=== PATIENT | male | born 1970 | race African-American/Black ===

== ENCOUNTER 2017-11-05 10:51 | Emergency (ER) | payer SELFPAY ==
[~2017-11-05] VITALS: Ht 177.8 cm; Wt 72.6 kg
[~2017-11-05 10:51] MED LIST: BACLOFEN10 MG ORAL; IBUPROFEN800 MG ORAL
[2017-11-05 11:00] VITALS: BP 160/79
[2017-11-05] MEDS ORDERED: Methocarbamol 750mg tab ORAL ONE (11:30)
[2017-11-05] MEDS ORDERED: Norco 5mg/325mg tab PO ONE (11:30)
[2017-11-05] MEDS ORDERED: Ketorolac 30mg Inj IM ONE (11:30)
[2017-11-05] MEDS ORDERED: Morphine Sulfate 2mg/ml Inj(IV/IM USE ONLY) IM ONE (13:00)
[2017-11-05] MEDS ORDERED: LIDODERM700 M1 TOPIC (13:37)
[2017-11-05] MEDS ORDERED: ROBAXIN-750750 MG PO (13:37)
[2017-11-05] MEDS ORDERED: NORCO 5-325 TA1 EACH ORAL (13:37)
[2017-11-05 13:48] VITALS: BP 160/79
--- NOTE | 2017-11-05 14:15 | Emergency Room Report ---
History of Present Illness General Chief Complaint: Lower Back Pain or Injury Source: Patient Present Illness HPI 47-year-old male presents ED complaining of back pain 3 days. States pain started shortly after lifting at the gym. Notes pain in his lower back on the left side. 10 out of 10, sharp, radiating to the buttock. Denies any bowel or bladder incontinence. Denies any leg or motor weakness. No other aggravating relieving factors. Denies any other associated symptoms Allergies: Coded Allergies: No Known Allergies (Unverified , 07/30/15) Patient History Past Medical History: none Past Surgical History: none Pertinent Family History: none Social History: Denies: smoking, alcohol use, drug use Immunizations: UTD Reviewed Nursing Documentation: PMH: Agreed; PSxH: Agreed Nursing Documentation-PMH Past Medical History: No History, Except For Hx Cardiac Problems: No - SCOLIOSIS Review of Systems All Other Systems: negative except mentioned in HPI Physical Exam Vital Signs Date Time Temp Pulse Resp B/P (MAP) Pulse Ox O2 Delivery O2 Flow Rate FiO2 11/05/17 10:53 98.2 77 16 160/79 96 Room Air 98.2 Sp02 EP Interpretation: reviewed, normal General Appearance: alert, GCS 15, non-toxic, mild distress Head: normocephalic, atraumatic Eyes: bilateral eye normal inspection, bilateral eye PERRL ENT: hearing grossly normal, normal pharynx, no angioedema, normal voice Neck: full range of motion, supple/symm/no masses Respiratory: chest non-tender, lungs clear, normal breath sounds, speaking full sentences Cardiovascular #1: regular rate, rhythm, no edema Cardiovascular #2: 2+ carotid (R), 2+ carotid (L), 2+ radial (R), 2+ radial (L) , 2+ dorsalis pedis (R), 2+ dorsalis pedis (L) Gastrointestinal: normal bowel sounds, non tender, soft, non-distended, no guarding, no rebound Rectal: deferred Genitourinary: normal inspection, no CVA tenderness, no vertebral tenderness Musculoskeletal: gait/station normal, normal range of motion, non-tender, tender - paraspinal lumbar tenderness Neurologic: alert, oriented x3, responsive, motor strength/tone normal, sensory intact, speech normal Psychiatric: judgement/insight normal, memory normal, mood/affect normal, no suicidal/homicidal ideation Reflexes: 3+ bicep (R), 3+ bicep (L), 3+ tricep (R), 3+ tricep (L), 3+ knee (R) , 3+ knee (L) Skin: normal color, no rash, warm/dry, well hydrated Lymphatic: no adenopathy Medical Decision Making Diagnostic Impression: Primary Impression: Back pain Qualified Codes: M54.42 - Lumbago with sciatica, left side ER Course Hospital Course 47-year-old male presents ED complaining of lower back pain Differential diagnoses include: pyelonephritis, kidney stone, muscle strain, Lspine fracture Clinical course Patient placed on stretcher. After initial history, physical exam reveals a male in mild distress. There is no vertebral body tenderness. There is paraspinal lumbar tenderness on the left radiating to the buttock. Sensations intact. No incontinence. Patient given Toradol, Lidoderm, Robaxin and Casar here. Patient noted some improvement. Patient given additional IM morphine with improvement noted. Discussed findings with patient. Pain is likely muscular versus sciatica. Patient could benefit from physical therapy and possible MRI as outpatient if symptoms do not resolve. Diagnosis - back pain Stable and discharged to home with prescription for Casar, lidoderm, robaxin. Followup with PMD. Return to ED if symptoms recur or worsen Last Vital Signs Date Time Temp Pulse Resp B/P (MAP) Pulse Ox O2 Delivery O2 Flow Rate FiO2 11/05/17 13:09 98.2 11/05/17 11:00 78 16 160/79 96 Room Air Status: improved Disposition: HOME, SELF-CARE Condition: Stable Scripts Lidocaine (Lidoderm) 1 Each Adh..patch 1 PATCH TOPIC DAILY, #7 PATCH 0 Refills Patch(es) may remain in place for up to 12 hours in any 24-hour period. Prov: Ovidio Young MD 11/05/17 Hydrocodone Bit/Acetaminophen 5-325* (NORCO 5-325*) 1 Each Tablet 1 TAB ORAL Q6H PRN for For Pain, #10 TAB 0 Refills Prov: Ovidio Young MD 11/05/17 Methocarbamol* (ROBAXIN-750*) 750 Mg Tablet 750 MG PO TID, #21 TAB 0 Refills Prov: Ovidio Young MD 11/05/17 Referrals: NOT CHOSEN IPA/MD,REFERRING (PCP) Patient Instructions: Low Back Sprain With [facility] Ovidio Young MD Nov 05, 2017 14:14
== END 2017-11-05 13:48 | disposition home or self-care (01) ==
LOC: EMR 11:27
DX: M54.42 Lumbago with sciatica, left side (principal)
CPT/HCPCS: 96372; 99283; J1885; J2270

== ENCOUNTER 2020-01-03 18:09 | Emergency (ER) | payer SELFPAY ==
[~2020-01-03] VITALS: Ht 182.9 cm; Wt 68.0 kg
[~2020-01-03 18:09] MED LIST changes: +LIDODERM700 M1 TOPIC; +NORCO 5-325 TA1 EACH ORAL; +ROBAXIN-750750 MG PO
[2020-01-03] MEDS ORDERED: Omnipaque-300 100ml vial INJ PRN (18:30)
--- NOTE | 2020-01-03 18:30 | NUR ---
ED Nurse Note: Pt ambulated to ED from home d/t RT upper and lower abdominal pain onset today x 1 hr ago accompanied by nausea and vomiting. Pt is AOx4, appears to be restless, currently nauseaus, cooperative to care, VSS, on RA, afebrile on triage. Placed on bed; will continue monitorning pt.
--- NOTE | 2020-01-03 18:30 | Emergency Room Report ---
History of Present Illness General Chief Complaint: Vomiting Source: Patient, Medical Record Present Illness HPI Disclaimer: Please note that this report is being documented using DRAGON technology. This can lead to erroneous entry secondary to incorrect interpretation by the dictating instrument. HPI: This 8-year-old male presents for evaluation abdominal pain and vomiting. Symptoms began this afternoon shortly after eating a burrito. He states he had sudden onset right lower quadrant pain that is throbbing causing multiple rounds of emesis. Denies diarrhea. Reports shaking chills but denies fevers. Denies chest pain, shortness of breath, cough. No known sick contacts. No prior abdominal surgery. No exacerbating or relieving factors. Pain has been constant since onset. PMH: Denied PSH: Denied Allergies: Denied Social Hx: Denied Allergies: Coded Allergies: No Known Allergies (Unverified , 07/30/15) COVID-19 Screening Contact w/high risk pt: No Experienced COVID-19 symptoms?: No COVID-19 Testing performed DECONTAMINATOR: No Nursing Documentation-PMH Hx Cardiac Problems: No - SCOLIOSIS Review of Systems All Other Systems: negative except mentioned in HPI Physical Exam Vital Signs Date Time Temp Pulse Resp B/P (MAP) Pulse Ox O2 Delivery O2 Flow Rate FiO2 01/03/20 18:20 97.5 89 18 151/89 (109) 99 Room Air General: Awake and alert, no acute distress HEENT: NC/AT. EOMI. Cardiovascular: RRR. S1 and S2 normal. No murmur appreciated Resp: Normal work of breathing. No cough, wheezing or crackles appreciated Abdomen: Abdomen is soft, nondistended. Tenderness palpation right lower quadrant but cannot fully assess for rebound, Rovsing's due to patient noncompliance. He is shaking. Mild guarding. Skin: Intact. No abrasions, laceration or rash over the exposed skin MSK: Normal tone and bulk. Moving all extremities. No obvious deformity. Neuro: Awake and alert. Mentating appropriately. Medical Decision Making Diagnostic Impression: Primary Impression: Kidney stone Additional Impression: Liver lesion ER Course 49-year-old male presents for evaluation abdominal pain and vomiting. Concern for gastritis, gastroenteritis, pancreatitis, appendicitis, bowel obstruction, food poisoning among others. Patient started on IV fluids, pain medication, antiemetics. White count within normal limits. Creatinine 1.1 BUN of 20. Lactate within normal limits. Urinalysis shows moderate bacteria 1+ leukocyte esterase negative nitrites. CT scan of the torso did not show acute appendicitis but did find a 6 mm stone with mild perinephric stranding. Mild hydronephrosis noted. Pain and vomiting are now well controlled. Patient is afebrile no other complaints. Discussed with urologist, Dr. Ordonez, who agrees that the patient is stable for outpatient follow-up and is a good chance of passing the stone on his own. Will start on tamsulosin and provide pain medication, antiemetics and ciprofloxacin for the bacteria in the patient's urine. Strict return precautions were discussed. First dose of ciprofloxacin given in the ED. patient structured to follow-up with PMD regarding the finding of meningioma. This will require routine follow-up. Will refer to outpatient follow-up. He understands and agrees with this treatment plan. Laboratory Tests Test 01/03/20 18:40 01/03/20 18:56 01/03/20 21:00 White Blood Count 5.7 K/UL (4.8-10.8) Red Blood Count 5.15 M/UL (4.70-6.10) Hemoglobin 11.8 G/DL (14.2-18.0) L Hematocrit 37.4 % (42.0-52.0) L Mean Corpuscular Volume 73 FL (80-99) L Mean Corpuscular Hemoglobin 22.9 PG (27.0-31.0) L Mean Corpuscular Hemoglobin Concent 31.5 G/DL (32.0-36.0) L Red Cell Distribution Width 14.7 % (11.6-14.8) Platelet Count 168 K/UL (150-450) Mean Platelet Volume 8.4 FL (6.5-10.1) Neutrophils (%) (Auto) 60.4 % (45.0-75.0) Lymphocytes (%) (Auto) 31.6 % (20.0-45.0) Monocytes (%) (Auto) 6.3 % (1.0-10.0) Eosinophils (%) (Auto) 0.5 % (0.0-3.0) Basophils (%) (Auto) 1.2 % (0.0-2.0) Prothrombin Time 11.8 SEC (9.30-11.50) H Prothrombin Time INR 1.1 (0.9-1.1) Activated Partial Thromboplast Time 25 SEC (23-33) Sodium Level 139 MMOL/L (136-145) Potassium Level 3.3 MMOL/L (3.5-5.1) L Chloride Level 103 MMOL/L (98-107) Carbon Dioxide Level 26 MMOL/L (21-32) Anion Gap 10 mmol/L (5-15) Blood Urea Nitrogen 20 mg/dL (7-18) H Creatinine 1.1 MG/DL (0.55-1.30) Estimated Glomerular Filtration Rate > 60 mL/min (>60) Glucose Level 194 MG/DL (74-106) H Calcium Level 8.5 MG/DL (8.5-10.1) Total Bilirubin 1.5 MG/DL (0.2-1.0) H Direct Bilirubin 0.2 MG/DL (0.0-0.3) Aspartate Amino Transferase (AST) 16 U/L (15-37) Alanine Aminotransferase (ALT) 12 U/L (12-78) Alkaline Phosphatase 51 U/L (46-116) Total Protein 6.6 G/DL (6.4-8.2) Albumin 4.3 G/DL (3.4-5.0) Globulin 2.3 g/dL Albumin/Globulin Ratio 1.9 (1.0-2.7) Lipase 108 U/L (73-393) Lactic Acid Level 1.70 mmol/L (0.4-2.0) Urine Color Brown Urine Appearance Cloudy Urine pH 5 (4.5-8.0) Urine Specific [place] 1.015 (1.005-1.035) Urine Protein 2+ (NEGATIVE) H Urine Glucose (UA) Negative (NEGATIVE) Urine Ketones 1+ (NEGATIVE) H Urine Blood 5+ (NEGATIVE) H Urine Nitrite Negative (NEGATIVE) Urine Bilirubin Negative (NEGATIVE) Urine Urobilinogen Normal MG/DL (0.0-1.0) Urine Leukocyte Esterase 1+ (NEGATIVE) H Urine RBC Tntc /HPF (0 - 0) H Urine WBC 2-4 /HPF (0 - 0) Urine Squamous Epithelial Cells None /LPF (NONE/OCC) Urine Bacteria Moderate /HPF (NONE) H CT/MRI/US Diagnostic Results CT/MRI/US Diagnostic Results : Impression IMPRESSION: 1. 6 mm distal right ureterolith with obstructive uropathy. 2. Right perinephric fat stranding, sequela of above, with underlying infectious process not entirely excluded. 3. 1.5 cm hypoenhancing lesion within the right hepatic lobe. Likely represents a hemangioma. Routine triphasic liver CT versus MRI can be considered for more definitive diagnosis. Radiologist: Tim Sparrow DO Electronically Signed: 01/03/20 20:51 Study ready at 20:46 and initial results transmitted at 20:51 Last Vital Signs Date Time Temp Pulse Resp B/P (MAP) Pulse Ox O2 Delivery O2 Flow Rate FiO2 01/03/20 18:20 97.5 89 18 151/89 (109) 99 Room Air Disposition: HOME, SELF-CARE Condition: Improved Scripts Hydrocodone Bit/Acetaminophen 7.5-325* (NORCO 7.5-325*) 1 Each Tablet 1 TAB ORAL Q6H PRN for For Pain, #12 TAB 0 Refills Prov: Andry Brown MD 01/03/20 Ciprofloxacin Hcl* (CIPROFLOXACIN HCL*) 500 Mg Tablet 500 MG ORAL Q12H for 10 Days, #20 TAB 0 Refills Prov: Andry Brown MD 01/03/20 Ondansetron Odt* (ZOFRAN ODT*) 4 Mg Tab.rapdis 4 MG BC EVERY 6 HOURS PRN for Nausea & Vomiting, #20 TAB 0 Refills Prov: Andry Brown MD 01/03/20 Tamsulosin HCl (Flomax) 0.4 Mg Cap.er.24h 0.4 MG ORAL DAILY for BPH for 7 Days, #7 CAP Prov: Andry Brown MD 01/03/20 Ibuprofen* (MOTRIN*) 600 Mg Tablet 600 MG ORAL Q6H PRN for For Pain, #30 TAB 0 Refills Prov: Andry Brown MD 01/03/20 Andry Brown MD Jan 03, 2020 18:30
--- NOTE | 2020-01-03 19:00 | NUR ---
ED Nurse Note: lactic collected, sent to lab
[2020-01-03 19:03] LABS: BASOPHILS % (AUTO) 1.2 % (0.0-2.0); EOSINOPHILS % (AUTO) 0.5 % (0.0-3.0); HEMATOCRIT 37.4 % (42.0-52.0); HEMOGLOBIN 11.8 G/DL (14.2-18.0); LYMPHOCYTES % (AUTO) 31.6 % (20.0-45.0); MEAN CORPUSCULAR VOLUME 73 FL (80-99); MONOCYTES % (AUTO) 6.3 % (1.0-10.0); NEUTROPHILS % (AUTO) 60.4 % (45.0-75.0); PLATELET COUNT 168 K/UL (150-450); RED BLOOD COUNT 5.15 M/UL (4.70-6.10); RED CELL DISTRIBUTION WIDTH 14.7 % (11.6-14.8); WHITE BLOOD COUNT 5.7 K/UL (4.8-10.8)
[2020-01-03 19:08] VITALS: BP 151/89
[2020-01-03 19:15] LABS: ANION GAP 10 mmol/L (5-15); BLOOD UREA NITROGEN 20 mg/dL (7-18); CALCIUM 8.5 MG/DL (8.5-10.1); CARBON DIOXIDE 26 MMOL/L (21-32); CHLORIDE 103 MMOL/L (98-107); CREATININE 1.1 MG/DL (0.55-1.30); POTASSIUM 3.3 MMOL/L (3.5-5.1); SODIUM 139 MMOL/L (136-145)
--- NOTE | 2020-01-03 19:15 | NUR ---
ED Nurse Note: report given to THEO Gallegos for continuity of care
--- NOTE | 2020-01-03 19:16 | NUR ---
ED Nurse Note: Pt in restroom, will continue to monitor.
[2020-01-03 19:18] LABS: INR 1.1 (0.9-1.1)
[2020-01-03 19:25] LABS: ALANINE AMINOTRANSFERASE 12 U/L (12-78); ALBUMIN 4.3 G/DL (3.4-5.0); ALBUMIN/GLOBULIN RATIO 1.9 (1.0-2.7); ALKALINE PHOSPHATASE 51 U/L (46-116); ASPARTATE AMINO TRANSFERASE 16 U/L (15-37); BILIRUBIN,TOTAL 1.5 MG/DL (0.2-1.0)
[2020-01-03 19:27] LABS: BILIRUBIN,DIRECT 0.2 MG/DL (0.0-0.3)
[2020-01-03] MEDS ORDERED: DiphenhydrAMINE 50mg/ml Inj IVP ONE (19:45)
[2020-01-03] MEDS ORDERED: DiphenhydrAMINE 50mg/ml Inj ONE (19:47)
[2020-01-03] MEDS ORDERED: Morphine Sulfate 4mg/ml Inj (IV USE ONLY) IVP ONE (20:00)
--- NOTE | 2020-01-03 20:12 | NUR ---
ED Nurse Note: Pt taken to CT in stable condition
[2020-01-03] MEDS ORDERED: Tamsulosin 0.4mg cap ORAL ONE (21:00)
[2020-01-03] MEDS ORDERED: Ketorolac 30mg Inj IV ONE (21:00)
--- NOTE | 2020-01-03 21:09 | NUR ---
ED Nurse Note: all medications administered, pt tolerated well no ss of distress noted. will continue to monitor.
[2020-01-03 21:10] VITALS: BP 143/84
--- NOTE | 2020-01-03 21:12 | NUR ---
ED Nurse Note: urine sent to lab
[2020-01-03 21:23] LABS: APPEARANCE,URINE CLOUDY; BILIRUBIN, URINE NEGATIVE (NEGATIVE); COLOR,URINE BROWN; GLUCOSE, URINE (UA) NEGATIVE (NEGATIVE); KETONES,URINE 1+ (NEGATIVE); LEUKOCYTE ESTERASE ,URINE 1+ (NEGATIVE); NITRITE,URINE NEGATIVE (NEGATIVE); PH,URINE 5 (4.5-8.0); PROTEIN,URINE 2+ (NEGATIVE); UROBILINOGEN,URINE NORMAL MG/DL (0.0-1.0)
[2020-01-03] MEDS ORDERED: FLOMAX0.4 MG ORAL ×2 (21:30)
[2020-01-03] MEDS ORDERED: IBUPROFEN600 M1 ORAL (21:30)
[2020-01-03] MEDS ORDERED: CIPROFLOXACIN500 M2 ORAL ×2 (21:44)
[2020-01-03] MEDS ORDERED: ONDANSETRON ODT4 MG BC (21:44)
[2020-01-03] MEDS ORDERED: NORCO 7.5-3251 EACH ORAL (21:45)
[2020-01-03] MEDS ORDERED: Ciprofloxacin 500mg tab ORAL ONE (22:00)
--- NOTE | 2020-01-03 22:00 | NUR ---
ED Nurse Note: ERMD at bedside
--- NOTE | 2020-01-03 22:02 | NUR ---
ED Nurse Note: All medications administered, pt tolerated well no ss of distress noted. will continue to monitor.
[2020-01-03 22:27] VITALS: BP 142/81
--- NOTE | 2020-01-03 22:27 | NUR ---
ER DISCHARGE NOTE: Patient is cleared to be discharged home per ERMD, pt is aox4, 99% on room air, with stable vital signs. pt was given dc and prescription instructions, pt was able to verbalize understanding, pt id band and iv site removed without complications. pt is able to ambulate with steady gait. pt took all belongings.
[2020-01-04] MEDS ORDERED: NORCO 7.5-3251 EACH ORAL (15:15)
--- NOTE | 2020-01-05 06:19 | Diagnostic Imaging Report ---
EXAM: CT Abdomen and Pelvis With Intravenous Contrast CLINICAL HISTORY: ABD PAIN TECHNIQUE: Axial computed tomography images of the abdomen and pelvis with intravenous contrast. CTDI is 5.6 mGy and DLP is 289.10 mGy-cm. One or more of the following dose reduction techniques were used: automated exposure control, adjustment of the mA and/or kV according to patient size, use of iterative reconstruction technique. COMPARISON: No relevant prior studies available. FINDINGS: Lung bases: Unremarkable. No mass. No consolidation. ABDOMEN: Liver: 1.5 cm hypoenhancing lesion within the right hepatic lobe. Gallbladder and bile ducts: Unremarkable. No calcified stones. No ductal dilation. Pancreas: Unremarkable. No mass. No ductal dilation. Spleen: Unremarkable. No splenomegaly. Adrenals: Unremarkable. No mass. Kidneys and ureters: 6 mm distal right ureterolith. There is mild proximal hydroureteronephrosis. There is mild delayed renal enhancement on the right with perinephric fat stranding. Punctate nonobstructive right interpolar nephrolith. Stomach and bowel: Unremarkable. No obstruction. No mucosal thickening. PELVIS: Appendix: Normal appendix. Bladder: Unremarkable. No mass. Reproductive: Unremarkable as visualized. ABDOMEN and PELVIS: Intraperitoneal space: Unremarkable. No free air. No significant fluid collection. Bones/joints: Significant apex right scoliosis of the thoracolumbar spine. No acute fracture. No dislocation. Soft tissues: Unremarkable. Vasculature: Unremarkable. No abdominal aortic aneurysm. Lymph nodes: Unremarkable. No enlarged lymph nodes. IMPRESSION: 1. 6 mm distal right ureterolith with obstructive uropathy. 2. Right perinephric fat stranding, sequela of above, with underlying infectious process not entirely excluded. 3. 1.5 cm hypoenhancing lesion within the right hepatic lobe. Likely represents a hemangioma. Routine triphasic liver CT versus MRI can be considered for more definitive diagnosis.
== END 2020-01-03 22:27 | disposition home or self-care (01) ==
LOC: EMR 18:50
DX: N13.2 Hydronephrosis with renal and ureteral calculous obstruction (principal); K76.9 Liver disease, unspecified; M41.9 Scoliosis, unspecified; Z91.14 Patient's other noncompliance with medication regimen
CPT/HCPCS: 36415; 74177; 80053; 81003; 82248; 83605; 83690; 85025; 85610; 85730; 86850; 86900; 86901; 87086; 96361; 96374; 96375; 96376; 99285; J1200; J1885; J2270; J2405; J7030; Q9965

== ENCOUNTER 2020-01-06 13:22 | Inpatient (IN) | payer MEDICAID ==
[~2020-01-06] VITALS: Ht 177.8 cm; Wt 76.8 kg
[~2020-01-06 13:22] MED LIST changes: +CIPROFLOXACIN500 M2 ORAL; +FLOMAX0.4 MG ORAL; +IBUPROFEN600 M1 ORAL; +NORCO 7.5-3251 EACH ORAL; +ONDANSETRON ODT4 MG BC
--- NOTE | 2020-01-06 13:32 | NUR ---
ED Nurse Note: Pt ambulated to ED from home d/t severe RT flank pain going on for less than a week. Per pt, he was seen and tx with the dx of kidney stones in the ER recently; was given prescriptions but pt stated no relief from pain. Pt is A&Ox4, appears to be restless, crying in pain, hooked to monitor BP: 181/77, breathing on spontaneous rhythm; afebrile on triage.
--- NOTE | 2020-01-06 13:36 | NUR ---
ED Nurse Note: Latest BP: 181/77; pt appears restless, crying in pain, ERMD at bedside.
[2020-01-06 13:38] VITALS: BP 177/96
--- NOTE | 2020-01-06 13:42 | Emergency Room Report ---
History of Present Illness General Chief Complaint: Pain Source: Patient Present Illness HPI 49-year-old -[place] male with no prior medical history who presents to the hospital for complaint of right flank pain. Of note he was seen in the ER 3 days ago and diagnosed with a 6 mm obstructing kidney stone. He was informed to follow-up with urology as an outpatient, however has been unable to obtain follow-up. He states that the pain is not controlled with the medications that he was discharged with. He has been compliant with his antibiotics. He reports decreased appetite, nausea, vomiting, decreased urination, chills, and fatigue. Denies chest pain, shortness of breath, diarrhea, hematuria back pain, rash or other symptoms The patient's symptoms were gradual onset, severity was moderate, duration since 3 days. Quality: Aching Past medical history: Kidney stone Past surgical history: Denies Smoking: Denies Alcohol use: Denies Drug use: Marijuana Review of systems: CONST: No fevers ++ chills, No night sweats PULMONARY: No productive cough, No shortness of breath CARDIAC: No chest pain, No palpitations GI: ++ vomiting, No diarrhea , No melena_or_BRBPR : No dysuria, No hematuria, No discharge NEURO: No new_focal_weakness_or_numbness, No confusion, No vision changes 14 point Review of Systems is otherwise negative except per HPI Physical Exam: GENERAL: Awake_alert_ nontoxic, no acute distress Spo2 100% on RA -normal EYES: Extraocular muscles are intact. Conjunctivae clear. Lids without swelling ENT: External nose and ear normal_in_appearance. Oropharynx clear. Head_atraumatic, Moist_oral_mucosa NECK: No JVD. No meningismus. No thyromegaly. Supple. Trachea midline RESP: Normal respiratory effort. Symmetric rise. No stridor. Clear_to_auscultation_No_rales_No_wheezes CARDIAC: Regular rate and regular rhytm. No_significant pedal edema. ABDOMEN: Soft. Nondistended. Nontender_No_rebound_or_guarding. Right CVA tenderness to palpation MSK: Normal muscle tone, without rigidity. Extremities without asymmetric deformity or swelling. SKIN: Warm and dry. No visible cyanosis or pallor NEUROLOGIC: Alert, oriented x3. Motor_and_sensation_grossly_intact. No truncal ataxia. Gait_normal Psych: Normal mood and affect, normal judgment and insight - COORDINATION OF CARE Case was discussed with: Patient , Patient's Physician Any labs and imaging that were ordered were interpreted as part of the medical decision making: Medical Decision Making/Plan: I reviewed patient's previous medical record. ER visit from 01/03/2020 showed 6 mm distal right ureterolith with obstructive uropathy and right perinephric stranding. Also found to have hypoenhancing 1.5 cm lesion within the right hepatic lobe. Urine culture was negative for infection Urology was consulted at that time and recommended discharge with expectant management. Differential diagnosis includes obstructive uropathy secondary to kidney stone versus pyelonephritis versus ureterolithiasis. At this time, patient has returned to the ER as they have failed outpatient expectant management. Patient was unable to follow-up with urology. He is not tolerating PO food/fluid and states that he is urinating less. Abdominal examination is notable for right CVA tenderness to palpation. He is otherwise afebrile with no focal deficits. ED intervention included flomax, toradol, morphine, zofran and fluids. Will admit to med surg for intractable pain 2/2 obstructive uropathy from renal stone. I spoke with Dr Cai who will admit the patient for further management. 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 Nursing Documentation-PMH Past Medical History: No History, Except For Hx Cardiac Problems: No - SCOLIOSIS Physical Exam Vital Signs Date Time Temp Pulse Resp B/P (MAP) Pulse Ox O2 Delivery O2 Flow Rate FiO2 01/06/20 13:27 98.4 74 20 177/96 (123) 97 Room Air Sp02 EP Interpretation: reviewed, normal Medical Decision Making Diagnostic Impression: Primary Impression: Hydronephrosis Additional Impressions: Obstructive uropathy Nephrolithiasis Liver lesion, right lobe Scoliosis BPH (benign prostatic hyperplasia) Diverticulosis EKG Diagnostic Results Troponin ordered: No CT/MRI/US Diagnostic Results CT/MRI/US Diagnostic Results : Impression CT Abdomen Pelvis WO Contrast Indication: Right flank pain Findings: There is mild right hydronephrosis and mild to moderate right hydroureter. There is a 5 mm calculus projected at the level of the distal right ureter this is located more distally than was demonstrated on the previous study, currently only about 1 cm from the ureterovesical junction, previously approximately 3 to 4 cm proximal to. There is very slight perinephric fat stranding. Hydronephrosis and fat stranding is unchanged from the prior study. Again demonstrated is a punctate nonobstructive interpolar region calculus on the right. No left renal or ureteral calculi demonstrated. No left hydronephrosis or hydroureter. Lack of IV contrast limits assessment of the renal parenchyma. No gross renal parenchymal mass or cyst demonstrated. Lack of IV contrast limits assessment of the other solid organs. The liver demonstrates a 14 mm slightly hypoattenuating lesion within segment 5 which demonstrates nonspecific soft tissue attenuation. There is a subcentimeter low-attenuation lesion in segment 2 which is too small to characterize the gallbladder, bile ducts, pancreas, spleen, adrenals are unremarkable. No retroperitoneal or mesenteric mass or adenopathy. The prostate is prominent. No pelvic mass or adenopathy. The appendix is normal. There are a few colonic diverticula. No small bowel distention. No free or loculated intraperitoneal gas or fluid. No small bowel distention. The included lung bases are clear. The bones demonstrate degenerative changes as well as thoracolumbar scoliotic deformity. Impression: 5 mm distal right ureteral calculus again demonstrated. This has advanced distally as compared to the previous study, now just short of the ureterovesical junction Punctate nonobstructive interpolar region calculus on the right 14 mm hypoattenuating lesion in segment 5 of the liver again demonstrated. Attenuation is nonspecific, and differential possibilities include neoplasm, hemangioma, complicated cysts. \ Scoliosis Colonic diverticulosis Prostatomegaly Incidental finding subcentimeter low-attenuation left lobe liver lesion, too small to characterize, most likely benign simple cyst Reevaluation Time: 13:49 Last Vital Signs Date Time Temp Pulse Resp B/P (MAP) Pulse Ox O2 Delivery O2 Flow Rate FiO2 01/06/20 13:38 98.4 20 177/96 97 Room Air 01/06/20 13:27 74 Status: improved Disposition: ADMITTED INPATIENT Admit Decision Time: 13:49 Condition: Stable Physician Consult: Dr Ordonez -- Urology Julia Batista D.O. Jan 06, 2020 13:42
[2020-01-06] MEDS ORDERED: Morphine Sulfate 4mg/ml Inj (IV USE ONLY) IVP ONE (13:45)
[2020-01-06] MEDS ORDERED: Tamsulosin 0.4mg cap ORAL ONE (13:45)
[2020-01-06] MEDS ORDERED: Ketorolac 30mg Inj IV ONE (13:45)
--- NOTE | 2020-01-06 14:01 | NUR ---
ED Nurse Note: pt taken to CT.
[2020-01-06 14:04] LABS: HEMATOCRIT 36.5 % (42.0-52.0); HEMOGLOBIN 11.6 G/DL (14.2-18.0); MEAN CORPUSCULAR VOLUME 70 FL (80-99); PLATELET COUNT 184 K/UL (150-450); RED BLOOD COUNT 5.21 M/UL (4.70-6.10); RED CELL DISTRIBUTION WIDTH 12.9 % (11.6-14.8); WHITE BLOOD COUNT 5.7 K/UL (4.8-10.8)
[2020-01-06 14:07] LABS: APPEARANCE,URINE CLEAR; COLOR,URINE PALE YELLOW; KETONES,URINE 2+ (NEGATIVE); PROTEIN,URINE NEGATIVE (NEGATIVE)
[2020-01-06 14:08] LABS: BILIRUBIN, URINE NEGATIVE (NEGATIVE); GLUCOSE, URINE (UA) NEGATIVE (NEGATIVE); LEUKOCYTE ESTERASE ,URINE 1+ (NEGATIVE); NITRITE,URINE NEGATIVE (NEGATIVE); UROBILINOGEN,URINE NORMAL MG/DL (0.0-1.0)
--- NOTE | 2020-01-06 14:22 | NUR ---
ED Nurse Note: pt returned from CT on stable condition.
[2020-01-06 14:25] LABS: ALANINE AMINOTRANSFERASE 14 U/L (12-78); ALBUMIN 4.2 G/DL (3.4-5.0); ALBUMIN/GLOBULIN RATIO 1.8 (1.0-2.7); ALKALINE PHOSPHATASE 54 U/L (46-116); ASPARTATE AMINO TRANSFERASE 24 U/L (15-37); BILIRUBIN,TOTAL 2.5 MG/DL (0.2-1.0); BLOOD UREA NITROGEN 7 mg/dL (7-18); CALCIUM 8.8 MG/DL (8.5-10.1); CARBON DIOXIDE 25 MMOL/L (21-32); CHLORIDE 101 MMOL/L (98-107); CREATININE 1.1 MG/DL (0.55-1.30); POTASSIUM 3.7 MMOL/L (3.5-5.1); SODIUM 135 MMOL/L (136-145)
[2020-01-06 14:27] LABS: INR 1.1 (0.9-1.1)
[2020-01-06 14:42] LABS: BILIRUBIN,DIRECT 0.3 MG/DL (0.0-0.3)
--- NOTE | 2020-01-06 15:18 | Diagnostic Imaging Report ---
Indication: Right flank pain Technique: Spiral acquisitions obtained through the abdomen and pelvis. No oral or IV contrast utilized, per urinary stone protocol. Multiplanar reconstructions were generated. Total dose length product 279 mGycm. CTDIvol(s) 5 mGy. Dose reduction achieved using automated exposure control Comparison: 01/03/2020 Findings: There is mild right hydronephrosis and mild to moderate right hydroureter. There is a 5 mm calculus projected at the level of the distal right ureter this is located more distally than was demonstrated on the previous study, currently only about 1 cm from the ureterovesical junction, previously approximately 3 to 4 cm proximal to. There is very slight perinephric fat stranding. Hydronephrosis and fat stranding is unchanged from the prior study. Again demonstrated is a punctate nonobstructive interpolar region calculus on the right. No left renal or ureteral calculi demonstrated. No left hydronephrosis or hydroureter. Lack of IV contrast limits assessment of the renal parenchyma. No gross renal parenchymal mass or cyst demonstrated. Lack of IV contrast limits assessment of the other solid organs. The liver demonstrates a 14 mm slightly hypoattenuating lesion within segment 5 which demonstrates nonspecific soft tissue attenuation. There is a subcentimeter low-attenuation lesion in segment 2 which is too small to characterize the gallbladder, bile ducts, pancreas, spleen, adrenals are unremarkable. No retroperitoneal or mesenteric mass or adenopathy. The prostate is prominent. No pelvic mass or adenopathy. The appendix is normal. There are a few colonic diverticula. No small bowel distention. No free or loculated intraperitoneal gas or fluid. No small bowel distention. The included lung bases are clear. The bones demonstrate degenerative changes as well as thoracolumbar scoliotic deformity. Impression: 5 mm distal right ureteral calculus again demonstrated. This has advanced distally as compared to the previous study, now just short of the ureterovesical junction Punctate nonobstructive interpolar region calculus on the right 14 mm hypoattenuating lesion in segment 5 of the liver again demonstrated. Attenuation is nonspecific, and differential possibilities include neoplasm, hemangioma, complicated cysts. Further evaluation with sonography or multiphasic contrast CT is recommended Scoliosis Colonic diverticulosis Prostatomegaly Incidental finding subcentimeter low-attenuation left lobe liver lesion, too small to characterize, most likely benign simple cyst The CT scanner at [facility] is accredited by the [employer] and the scans are performed using protocols designed to limit radiation exposure to as low as reasonably achievable to attain images of sufficient resolution adequate for diagnostic evaluation.
[2020-01-06 15:22] VITALS: BP 139/67
--- NOTE | 2020-01-06 15:55 | NUR ---
ED Nurse Note: report was given to liliana infante in med surg unit.
--- NOTE | 2020-01-06 16:00 | NUR ---
ED Nurse Note: pt was transferred to ms unit under the care of dr mcdaniel. Pt was transferred on stable condition; all belongings was sent with pt
--- NOTE | 2020-01-06 16:09 | NUR ---
NURSE NOTES: Received patient from ER,patient awake and alert and oriented,respirations unlabored. Patient state slight pain to the right side to the back and bladder.Will notify DR of patient room number.
[2020-01-06 16:37] VITALS: BP 146/79
[2020-01-06] MEDS ORDERED: Morphine Sulfate 2mg/ml Inj(IV/IM USE ONLY) IVP PRN (17:45)
[2020-01-06] MEDS: Ketorolac 30mg Inj IV SCH ×2 (19:20→23:52)
--- NOTE | 2020-01-06 19:30 | NUR ---
NURSE NOTES: Received report from Savana VENEGAS. Pt. is in bed, awake, alert and oriented. Breathing even and unlaobred.States his pain level is improving because he just had his pain meds. Bed is in it's lowest position, alarm on and locked. Will continue with plan of care.
--- NOTE | 2020-01-06 19:30 | Consultation ---
DATE OF CONSULTATION: 01/06/2020 UROLOGY CONSULTATION CONSULTING PHYSICIAN: Herb Ordonez MD. ATTENDING/REFERRING PHYSICIAN: Jhonny Cai MD. CHIEF COMPLAINT/HISTORY OF PRESENT ILLNESS: I was asked by Dr. Cai to evaluate this 49-year-old gentleman regarding history of a right distal ureteral stone with hydronephrosis and colic secondary to the same. Briefly, the patient has presented to the hospital for the second time in three days with right abdominal flank pain. This first developed the other day with nausea and vomiting. Workup here revealed a distal right ureteral stone. The patient's pain was controlled and he was initially sent out, but he now returns with ongoing pain. A follow-up CT scan revealed migration of the stone to 1 cm above the UVJ. But given his level of discomfort, he was admitted and I was asked to evaluate the patient. PAST MEDICAL HISTORY: Otherwise unremarkable. PAST SURGICAL HISTORY: None. MEDICATIONS: Please see the chart for current medications and administration details. Briefly, the patient is on morphine for pain control. ALLERGIES: No known drug allergies. SOCIAL HISTORY: Unremarkable for tobacco or alcohol use. The patient smokes marijuana on occasion. FAMILY HISTORY: Noncontributory. REVIEW OF SYSTEMS: A 14-system review of systems is unremarkable outside what is described above. PHYSICAL EXAMINATION: GENERAL: The patient is a middle-aged gentleman, awake, alert, and oriented x4. Very pleasant. No obvious distress. HEENT: NC/AT. EOMI. Oropharynx clear. NECK: Supple. CHEST: Within normal limits. ABDOMEN: Soft, nontender, and nondistended. EXTREMITIES: Warm and well perfused. No cyanosis, clubbing, or edema. BACK: No CVA tenderness to percussion at this time. NEUROLOGIC: Grossly nonfocal. LABORATORY DATA: White blood cell count 5.7, hematocrit 36.5, platelets 184,000. PT is 11.7. INR and PTT within normal limits. Sodium 135, potassium 3.7, chloride 101, bicarb 25, BUN 7, creatinine 1.1. Glucose 129. Calcium 8.8. LFTs notable for total bilirubin of 2.5, otherwise unremarkable. Urinalysis, specific gravity 1.010, pH 6.0. Dip test is notable for 2+ ketones, 4+ occult blood, and 1+ leukocyte esterase. Microanalysis with 20 to 30 red blood cells per high-power field. DIAGNOSTIC IMAGING: CT scan of the abdomen and pelvis done today reveals a 5 mm distal right ureteral calculus, which has advanced distally compared to the previous study. It is now approximately 1 cm from the UV junction. It was approximately 4 cm proximal to it before. There is very slight perinephric stranding secondary to same. There is a punctate nonobstructing 2 mm stone in the bottom of the right kidney. Other findings as noted. ASSESSMENT AND PLAN: In summary, the patient is a 49-year-old with a history of a 5 mm right distal ureteral stone with hydronephrosis and colic secondary to same. Physical exam is unremarkable. Laboratory data is notable for microhematuria in the setting of same. Diagnostic imaging with CT scan reveals the findings described above. I discussed these findings at the patient's bedside. I will place him on increased IV fluids and we will strain all his urine. Additionally, I will place him on Toradol 30 mg IV every 6 hours [id number] for better pain control. We will see how the patient is doing tomorrow. If he is not improved, we will consider ureteroscopy with laser lithotripsy and double-J stent placement for the same. The risks, benefits, and alternatives of the same were discussed with the patient and informed consent was obtained. He will be kept NPO past midnight in case of the same. If the patient manages to pass the stone in the interim, we will cancel surgery. Thank you for allowing me to participate in the care of this nice gentleman. Please do not hesitate to contact me for any questions that you may further have regarding his care. I will see him with you as needed. Herb Ordonez M.D. DR: SOM JOB#: [id number] CC:
--- NOTE | 2020-01-06 19:36 | NUR ---
NURSE HAND-OFF: ALRN Important Events on Shift:[consent signed for procedure on 01/07/20] Patient Status: [] Diet: Regular,NPO after Midnight[] Pending Orders: [] Pending Results/Labs:[] Pending MD notification:[] Latest Vital Signs: Temperature 98.1 , Pulse 59 , B/P 146 /79 , Respiratory Rate 18 , O2 SAT 100 , Room Air, O2 Flow Rate . Vital Sign Comment: [] Latest Thayer Fall Score: 35 Fall Risk: Medium Risk Safety Measures: Call light Within Reach, Bed Alarm , Side Rails Side Rails x2, Bed position Low and Locked. Fall Precautions: Report given to [].
[2020-01-06 20:00] VITALS: BP 137/94
[2020-01-06] MEDS: cefTRIAXone 1 GM in D5W 55 ML IVPB SCH (21:14)
[2020-01-07] VITALS (12 sets, daily range): BP systolic 132–150; BP diastolic 50–92
--- NOTE | 2020-01-07 02:00 | History and Physical Report ---
DATE OF ADMISSION: 01/06/2020 REASON FOR ADMISSION: Ureteral colic. HISTORY OF PRESENT ILLNESS: This is a 49-year-old male. He has a known history of a right distal ureteral stone with hydronephrosis. He was here 3 days ago and treated with hydration with outpatient follow up. Over the subsequent days, the stone has migrated more distally to the UV junction, but continued pain with inadequate control as an outpatient, has prompted hospitalization. PAST MEDICAL HISTORY: Otherwise unremarkable. MEDICATIONS: None. ALLERGIES: None. SOCIAL HISTORY: Occasional marijuana. FAMILY HISTORY: Noncontributory. REVIEW OF SYSTEMS: Otherwise unremarkable. PHYSICAL EXAMINATION: GENERAL: Appears well. No distress. VITAL SIGNS: Blood pressure 132/79, heart rate 89, respirations 18. Afebrile. HEENT: Conjunctivae pink. Oropharynx clear. NECK: Supple. Jugular venous pressure normal. LUNGS: Clear. CARDIAC: Regular. ABDOMEN: Soft. No guarding or rebound. There is no CVA tenderness. EXTREMITIES: Without edema. NEUROLOGIC: Nonfocal. LABORATORY AND DIAGNOSTIC DATA: White count 5.7, hematocrit 36.5. BUN 7, creatinine 1.1, bicarb 25, sodium 135, and potassium 3.7. Urinalysis, 20 to 30 red cells. CAT scan revealed 5 mm distal right ureteral calculus, approximately 1 cm from the UV junction. Previously it was 4 cm from that site. There is also a small stone in the right kidney that is nonobstructing. IMPRESSION: Ureteral stone and associated ureteral colic with hydronephrosis and acute pain, unresponsive to oral therapy. PLAN: IV pain control. IV fluid hydration. Urologic consultation. Presently no indication for antimicrobial therapy, but we will follow closely. Check uric acid levels and lipid panel. Jhonny Cai M.D. DR: IBIS JOB#: [id number] CC:
[2020-01-07] MEDS: NS w/KCl 20mEq 1000ml 1,000 ML IV SCH ×2 (02:24→10:34)
--- NOTE | 2020-01-07 04:34 | NUR ---
NURSE NOTES: IV atb of Ceftriaxone given without a/r noted. Able tovoid but with pain, noted with clear yellow urine and strainer was provided. Checked urine for any kidney stones but none was noted. Discussed plan for surgery in AM and verbalized understanding. NPO started at midnight. Meds given for flank pain, verbalized relief.Able to ambulate with steady gait. Bed is in it's lowest position, with alarm on and locked. Frequently monitored.
[2020-01-07] MEDS: Ketorolac 30mg Inj IV SCH ×3 (06:11→18:31)
[2020-01-07 06:21] LABS: BASOPHILS % (AUTO) 1.3 % (0.0-2.0); EOSINOPHILS % (AUTO) 0.2 % (0.0-3.0); HEMATOCRIT 34.9 % (42.0-52.0); LYMPHOCYTES % (AUTO) 19.8 % (20.0-45.0); MEAN CORPUSCULAR VOLUME 71 FL (80-99); MONOCYTES % (AUTO) 10.7 % (1.0-10.0); PLATELET COUNT 160 K/UL (150-450); RED BLOOD COUNT 4.95 M/UL (4.70-6.10); RED CELL DISTRIBUTION WIDTH 13.1 % (11.6-14.8); WHITE BLOOD COUNT 5.4 K/UL (4.8-10.8)
[2020-01-07] MEDS ORDERED: Iothalamate Meglumine 60% 50ML INJ ONE (06:33)
[2020-01-07 06:42] LABS: ALANINE AMINOTRANSFERASE 16 U/L (12-78); ALBUMIN 3.5 G/DL (3.4-5.0); ALBUMIN/GLOBULIN RATIO 1.3 (1.0-2.7); ALKALINE PHOSPHATASE 49 U/L (46-116); ANION GAP 8 mmol/L (5-15); ASPARTATE AMINO TRANSFERASE 20 U/L (15-37); BILIRUBIN,TOTAL 2.4 MG/DL (0.2-1.0); BLOOD UREA NITROGEN 8 mg/dL (7-18); CARBON DIOXIDE 26 MMOL/L (21-32); CHLORIDE 106 MMOL/L (98-107); CHOLESTEROL 123 MG/DL (< 200); CREATININE 1.3 MG/DL (0.55-1.30); HDL CHOLESTEROL 48 MG/DL (40-60); SODIUM 140 MMOL/L (136-145); TRIGLYCERIDES 37 MG/DL (30-150)
[2020-01-07 06:45] LABS: BILIRUBIN,DIRECT 0.3 MG/DL (0.0-0.3)
[2020-01-07] MEDS ORDERED: fentaNYL 100 mcg/2 mL IV PRN (06:45)
[2020-01-07] MEDS ORDERED: Hydromorphone 0.5mg/0.5ml inj IVP PRN (06:45)
[2020-01-07] MEDS ORDERED: Metoclopramide 10mg/2ml Inj IVP PRN (06:45)
--- NOTE | 2020-01-07 06:45 | NUR ---
Picked up for surgery. Report given.
--- NOTE | 2020-01-07 06:50 | Pre-Procedure Note/Attestation ---
Pre-Procedure Note/Attestation Complete Prior to Procedure Planned Procedure: right Procedure Narrative: Right ureteroscopy, laser lithotripsy, possible JJ stent placement, cystoscopy and fluoroscopy Indications for Procedure Pre-Operative Diagnosis: Right ureteral stone/ hydro/ colic Attestation I attest that I discussed the nature of the procedure; its benefits; risks and complications; and alternatives (and the risks and benefits of such alternatives), prior to the procedure, with the patient (or the patient's legal rental representative). I attest that, if there was a reasonable possibility of needing a blood transfusion, the patient (or the patient's legal rental representative) was given the [place] [employer] standardized written summary, pursuant to the Manuel Shahzad Blood Safety Act ([place] Health and Safety Code # 1645, as amended). I attest that I re-evaluated the patient just prior to the surgery and that there has been no change in the patient's H&P, except as documented below: Herb Ordonez M.D. Jan 07, 2020 06:50
[2020-01-07] MEDS ORDERED: Midazolam 2mg/2ml Inj ONE (06:53)
[2020-01-07] MEDS ORDERED: LR 1000ml ONE (07:00)
[2020-01-07] MEDS ORDERED: Sterile Water Irrig 1000ml IRRIG ONE (07:00)
[2020-01-07] MEDS ORDERED: Lidocaine 1% MPF 10mg/ml 5ml ONE (07:12)
[2020-01-07] MEDS ORDERED: fentaNYL 100 mcg/2 mL IV ONE (07:23)
--- NOTE | 2020-01-07 07:43 | NUR ---
NURSE HAND-OFF: Important Events on Shift:npo, for surgery Patient Status: Diet: Pending Orders: Pending Results/Labs: Pending MD notification: Latest Vital Signs: Temperature 97.5 , Pulse 73 , B/P 135 /76 , Respiratory Rate 17 , O2 SAT 95 , Room Air, O2 Flow Rate . Vital Sign Comment: Latest Thayer Fall Score: 35 Fall Risk: Medium Risk Safety Measures: Call light Within Reach, Bed Alarm Zone 2, Side Rails Side Rails x2, Bed position Low and Locked. Fall Precautions: Report given to Savana VENEGAS.
--- NOTE | 2020-01-07 07:49 | NUR ---
NURSE NOTES: Received report Patient off floor for procedure this AM.
--- NOTE | 2020-01-07 07:50 | Immediate Post-Op Evaluation ---
Immediate Post-Op Evalulation Immediate Post-Op Evalulation Procedure: uteroscopy; j stent Date of Evaluation: Jan 07, 2020 Time of Evaluation: 07:45 IV Fluids: 1000 Blood Products: 0 Estimated Blood Loss: 0 Blood Pressure Systolic: 140 Blood Pressure Diastolic: 50 Pulse Rate: 65 Respiratory Rate: 14 O2 Sat by Pulse Oximetry: 99 Temperature (Fahrenheit): 98.7 Nausea: No Vomiting: No Complications none Patient Status: awake, reacts, patent Hydration Status: adequate Drug: none Pamela Grayson CRNA Jan 07, 2020 07:50
--- NOTE | 2020-01-07 07:53 | Anethesia Preoperative Eval ---
Anesthesia Pre-op PMH/ROS General Date of Evaluation: Jan 07, 2020 Time of Evaluation: 07:00 Anesthesiologist: alf ASA Score: ASA 2 Mallampati Score Class I : Soft palate, uvula, fauces, pillars visible Class II: Soft palate, uvula, fauces visible Class III: Soft palate, base of uvula visible Class IV: Only hard plate visible Mallampati Classification: Class II Surgeon: elida Diagnosis: kidney stones Surgical Procedure: uterscopy Anesthesia History: none Family History: no anesthesia problems Allergies: Coded Allergies: No Known Allergies (Unverified , 07/30/15) Medications: see eMAR Patient NPO?: Yes NPO Date: Jan 07, 2020 NPO Time: 00:01 Past Medical History Cardiovascular: Denies: HTN, CAD, [place], valve dz, arrhythmia, other Pulmonary: Denies: asthma, COPD, CRYSTAL, other Gastrointestinal/Genitourinary: Denies: GERD, CRI, ESRD, other Neurologic/Psychiatric: Denies: dementia, CVA, depression/anxiety, TIA, other Endocrine: Denies: DM, hypothyroidism, steroids, other HEENT: Denies: cataract (L), cataract (R), glaucoma, ATKA (L), ATKA (R), other Hematology/Immune: Denies: anemia, DVT, bleeding disorder, other Musculoskeletal/Integumentary: Denies: OA, RA, DJD, DDD, edema, other Other: other - kidney stones; PSxH Narrative: none Anesthesia Pre-op Phys. Exam Physician Exam Last Vital Signs Date Time Temp Pulse Resp B/P (MAP) Pulse Ox O2 Delivery O2 Flow Rate FiO2 01/07/20 04:00 97.5 73 17 135/76 (95) 95 01/06/20 21:00 Room Air Constitutional: NAD Neurologic: CN 2-12 intact Cardiovascular: RRR Respiratory: CTA Gastrointestinal: S/NT/ND Airway Exam Mallampati Classification 2 Mallampati Score: Class II MO: full Neck: flexible ROM: full Dentures: no upper, no lower Anesthesia Pre-op A/P Labs Hematology Test 01/06/20 13:42 01/07/20 05:03 White Blood Count 5.7 K/UL (4.8-10.8) 5.4 K/UL (4.8-10.8) Red Blood Count 5.21 M/UL (4.70-6.10) 4.95 M/UL (4.70-6.10) Hemoglobin 11.6 G/DL (14.2-18.0) L 11.0 G/DL (14.2-18.0) L Hematocrit 36.5 % (42.0-52.0) L 34.9 % (42.0-52.0) L Mean Corpuscular Volume 70 FL (80-99) L 71 FL (80-99) L Mean Corpuscular Hemoglobin 22.3 PG (27.0-31.0) L 22.3 PG (27.0-31.0) L Mean Corpuscular Hemoglobin Concent 31.9 G/DL (32.0-36.0) L 31.6 G/DL (32.0-36.0) L Red Cell Distribution Width 12.9 % (11.6-14.8) 13.1 % (11.6-14.8) Platelet Count 184 K/UL (150-450) 160 K/UL (150-450) Mean Platelet Volume 7.4 FL (6.5-10.1) 7.6 FL (6.5-10.1) Neutrophils (%) (Auto) % (45.0-75.0) 68.0 % (45.0-75.0) Lymphocytes (%) (Auto) % (20.0-45.0) 19.8 % (20.0-45.0) L Monocytes (%) (Auto) % (1.0-10.0) 10.7 % (1.0-10.0) H Eosinophils (%) (Auto) % (0.0-3.0) 0.2 % (0.0-3.0) Basophils (%) (Auto) % (0.0-2.0) 1.3 % (0.0-2.0) Differential Total Cells Counted 100 Neutrophils % (Manual) 81 % (45-75) H Lymphocytes % (Manual) 14 % (20-45) L Monocytes % (Manual) 5 % (1-10) Eosinophils % (Manual) 0 % (0-3) Basophils % (Manual) 0 % (0-2) Band Neutrophils 0 % (0-8) Platelet Estimate Adequate Platelet Morphology Normal Red Blood Cell Morphology Hypochromasia 2+ Microcytosis 3+ Coagulation Test 01/06/20 13:42 Prothrombin Time 11.7 SEC (9.30-11.50) H Prothromb Time International Ratio 1.1 (0.9-1.1) Activated Partial Thromboplast Time 30 SEC (23-33) Chemistry Test 01/06/20 13:42 01/07/20 05:03 Sodium Level 135 MMOL/L (136-145) L 140 MMOL/L (136-145) Potassium Level 3.7 MMOL/L (3.5-5.1) 4.0 MMOL/L (3.5-5.1) Chloride Level 101 MMOL/L (98-107) 106 MMOL/L (98-107) Carbon Dioxide Level 25 MMOL/L (21-32) 26 MMOL/L (21-32) Blood Urea Nitrogen 7 mg/dL (7-18) 8 mg/dL (7-18) Creatinine 1.1 MG/DL (0.55-1.30) 1.3 MG/DL (0.55-1.30) Estimat Glomerular Filtration Rate > 60 mL/min (>60) > 60 mL/min (>60) Glucose Level 129 MG/DL (74-106) H 113 MG/DL (74-106) H Calcium Level 8.8 MG/DL (8.5-10.1) 8.0 MG/DL (8.5-10.1) L Total Bilirubin 2.5 MG/DL (0.2-1.0) H 2.4 MG/DL (0.2-1.0) H Direct Bilirubin 0.3 MG/DL (0.0-0.3) 0.3 MG/DL (0.0-0.3) Aspartate Amino Transf (AST/SGOT) 24 U/L (15-37) 20 U/L (15-37) Alanine Aminotransferase (ALT/SGPT) 14 U/L (12-78) 16 U/L (12-78) Alkaline Phosphatase 54 U/L (46-116) 49 U/L (46-116) Total Protein 6.5 G/DL (6.4-8.2) 6.2 G/DL (6.4-8.2) L Albumin 4.2 G/DL (3.4-5.0) 3.5 G/DL (3.4-5.0) Globulin 2.3 g/dL 2.7 g/dL Albumin/Globulin Ratio 1.8 (1.0-2.7) 1.3 (1.0-2.7) Lipase 124 U/L (73-393) Anion Gap 8 mmol/L (5-15) Uric Acid 4.0 MG/DL (2.6-7.2) Triglycerides Level 37 MG/DL (30-150) Cholesterol Level 123 MG/DL (< 200) LDL Cholesterol 67 mg/dL (<100) HDL Cholesterol 48 MG/DL (40-60) Cholesterol/HDL Ratio 2.6 (3.3-4.4) L Studies Pre-op Studies: EKG - sr Risk Assessment & Plan Assessment: covid neg Plan: general Status Change Before Surgery: No Pre-Antibiotics Drug: none Pamela Grayson CRNA Jan 07, 2020 07:53
--- NOTE | 2020-01-07 08:03 | 48 Hour Post Anesthesia Eval ---
Post Anesthesia Evaluation Procedure: ureterscopy; j stent Date of Evaluation: Jan 07, 2020 Time of Evaluation: 08:03 Blood Pressure Systolic: 114 0: 70 Pulse Rate: 65 Respiratory Rate: 14 O2 Sat by Pulse Oximetry: 98 Airway: patent Nausea: No Vomiting: No Hydration Status: adequate Cardiopulmonary Status: stable Mental Status/LOC: patient returned to baseline Post-Anesthesia Complications: none Follow-up care needed: N/A Pamela Grayson CRNA Jan 07, 2020 08:03
--- NOTE | 2020-01-07 08:45 | Procedure Note ---
DATE OF PROCEDURE: 01/07/2020 PREOPERATIVE DIAGNOSIS: Right distal ureteral stone with hydronephrosis and colic secondary to same. POSTOPERATIVE DIAGNOSIS: Right distal ureteral stone with hydronephrosis and colic secondary to same. PROCEDURE PERFORMED: Right ureteroscopy, laser lithotripsy, double-J stent placement, cystoscopy and fluoroscopy. SURGEON: Herb Ordonez MD. ANESTHESIA: General/LMA, attending. ESTIMATED BLOOD LOSS: None. IV FLUIDS: IV crystalloid only. DRAINS, TUBES, AND CATHETERS: A 6-[place] x 26 cm double-J stent left indwelling. SPECIMENS: None. COMPLICATIONS: None. OPERATIVE INDICATION: The patient is a 49-year-old gentleman with a history of a 5 mm distal right ureteral stone. He presented to the hospital twice with pain secondary to the same. The second time, he was admitted and counseled regarding the same. He elected to undergo the procedure described above. He was scheduled for this procedure at [facility] on January 07, 2020. OPERATIVE NOTE IN DETAIL: The patient was brought to the operating room and placed on the table in the supine position. General anesthesia was then introduced. Once the patient had his LMA placed, he was repositioned in dorsal lithotomy, draped and prepped in the usual sterile fashion. Using a semi-rigid ureteroscope, the patient's urethral meatus was calibrated and the scope was passed along the length of the urethra. The urethra and prostate were within normal limits. The bladder was entered and inspected. There was no evidence of masses, tumors, or stones and both ureteral orifices were identified. Attention was turned to the right ureteral orifice, into which a 0.035 Glidewire was cannulated and used to pass the scope with mild difficulty up into the distal ureter. Approximately 2 to 3 cm up in the ureter, however, the stone was encountered. Using a 365 holmium laser fiber on a setting of 0.8 joules and 8 hertz, I proceeded to fragment the stone in its entirety. Once this was done, I could advance the scope up into the mid ureter and proximal ureter with no further evidence of obstructing stone or other abnormality. Descending ureteroscopy confirmed the same and that there were no significant remaining stone fragments. A guidewire was left in place and ureteroscope was removed. The cystoscope was swapped out for the ureteroscope and back fed over the wire and positioned at the right ureteral orifice. It was then used to pass a 6-[place] x 26 cm double-J stent up into the right renal collecting system with a good curl noted fluoroscopically within the kidney and cystoscopically within the bladder. Once the stent was in place, the bladder was evacuated through the scope and the scope was removed. The patient was taken out of dorsal lithotomy and placed back in supine position. He was cleaned, dried and dressed. He was awakened and extubated without difficulty and transported to recovery in stable condition. I was present and scrubbed for the entire duration of this case. All needle, sponge, and instrument counts were reported correct. Herb Ordonez M.D. DR: NICO JOB#: [id number] CC:
--- NOTE | 2020-01-07 08:47 | NUR ---
NURSE NOTES: Patient received from recovery room.patient awake and alert and oriented,respirations unlabored.patient voiding clear red tinge color urine,will monitor.No complaint of pain at this time.Call light within reach.
[2020-01-07] MEDS ORDERED: Tamsulosin 0.4mg cap ORAL SCH (09:00)
--- NOTE | 2020-01-07 10:29 | NUR ---
NURSE NOTES: rewind operator spoke to Dr. Ordonez and clarified liquid order to thin liquid. Patient is clear for discharge from urology stand point, no need to strain urine, resume all previous orders,patient needs to see Dr. Ordonez in a couple of week for stent removal,Dr. Ordonez's office will contact the patient. Patient complains of right lower quadrant pain when urinating. Dr. Ordonez was informed per Dr. Ordonez is is because of stent. RN explained to the patient. Addendum: 01/07/20 at 1035 by NAIN LOWERY RN rewind operator endorsed to the primary nurse.
--- NOTE | 2020-01-07 13:10 | Diagnostic Imaging Report ---
. INDICATION: Pain, intraoperative TECHNIQUE: Intraoperative imaging Fluoroscopy time: 5.1 seconds Total dose: 0.71867 mGym2 Total number of images: 3 COMPARISON: None FINDINGS: Intraoperative images document placement of a ureteroscope, subsequently a guidewire in the right ureter, and subsequently what appears to be the proximal end of a right nephroureteral stent. IMPRESSION: Intraoperative imaging, as described
--- NOTE | 2020-01-07 16:16 | NUR ---
CASE MANAGEMENT:REVIEW 49 YR OLD MALE WALKED IN TO ER CC: RT FLANK PAIN SI: OBSTRUCTING NEPHROLITHIASIS. HYDRONEPHROSIS 98.4 74 20 181/77 97% ON RA NA-135 GLUCOSE+129 IS: IV TORADOL X1 IV MORPHINE 1L NS BOLUS IV ZOFRAN CT ABD/PELVIS : TO MED/SURG 4 EAST PLAN: TO SURGERY FOR CYSTOSCOPY ETC
--- NOTE | 2020-01-07 17:40 | NUR ---
NURSE NOTES: DR Cai here ,patient willbe discharge today.DR shepherd to give dose of Rocephin IV as ordered now and dulcolax suppository as orderedx1.
[2020-01-07] MEDS: cefTRIAXone 1 GM in D5W 55 ML IVPB SCH (18:36)
--- NOTE | 2020-01-07 18:52 | NUR ---
NURSE NOTES: Patient voiding light pinkish tinge urine no clots noted.Patient wasgiven suppository,patient state he had a small BM. No complaint of pain,patient will be discharge as ordered.
--- NOTE | 2020-01-07 19:40 | NUR ---
HAND-OFF: Report given to Darin VENEGAS, patient is discharged.
--- NOTE | 2020-01-07 19:41 | NUR ---
NURSE NOTES: Received pt awake,A&ox4, and verbal. No sob,pain,fever, and cough at the moment. Iv is intact and asymptomatic. pt is getting d/c, waiting for his gf to pick him up. Bed is in the lowest position,locked, and call light within reach.
--- NOTE | 2020-01-07 20:03 | NUR ---
NURSE NOTES: pt left the hospital with a nurse. Offered wheelchair but he refused. His gf picked him up. D/c paper given.
--- NOTE | 2020-01-09 08:49 | Discharge Summary ---
Discharge Summary Discharge Summary _ DATE OF ADMISSION: 01/06/2020 DATE OF DISCHARGE: 01/07/2020 DISCHARGED BY: REASON FOR ADMISSION: 49 years old male with 6 mm obstructing kidney stone was in ER 3 days ago : he was treated with hydration, received analgesic and antibiotic upon discharge and recommended outpatient follow-up with urologist. Patient presented this time with a complaint of right flank pain. He stated that he was unable to follow-up with a urologist. Pain was not controlled with oral analgesic. Patient was compliant with antibiotics , that he was prescribed. Patient reported nausea , vomiting, decreased appetite along with decreased urination , chills and fatigue. He denied chest pain or shortness of breath. No diarrhea. No gross hematuria. Upon evaluation vital signs revealed elevated blood pressure 177/96 , otherwise are stable. CT scan of abdomen and pelvis revealed 5 mm distal right ureteral calculus advanced distally as compared to previous study : now just short of the ureterovesical junction. Laboratory work-up revealed no leukocytosis ,hemoglobin 11.6, hematocrit 36.5 . Stable electrolytes and renal parameters Glucose 129 Urinalysis revealed microscopic hematuria. In emergency department patient received Toradol, morphine ,Zofran, IV fluids and Flomax. Urologist consulted . Patient subsequently admitted for further management due to obstructive uropathy and intractable right flank pain CONSULTANTS: Urologist Dr. Ordonez HOSPITAL COURSE: Patient admitted to medical surgical floor Patient provided with generalized IV hydration. No indication for antimicrobial therapy at this time. Lipid panel was stable. Uric acid within normal range. Urologist seen and evaluated patient . IV fluids rate increased . Patient started on [id number] Toradol. Patient was kept n.p.o. after midnight. Patient symptomatically did not improved and subsequently undergone on 01/06 right ureteroscopy, laser lithotripsy, double-J stent placement, cystoscopy and fluoroscopy. Patient tolerated procedure well. Postoperatively pain was controlled . Patient tolerated diet. Voided freely. Ambulated . Patient was stable for discharge home with outpatient follow-up with urologist. Patient was made aware that stent at some point will need to come out. Patient clinically stabilized and was ready for discharge home. Due to rapid and unexpected improvement in patient condition, patient was discharged in 1 day. FINAL DIAGNOSES: Right distal ureteral stone with hydronephrosis and colic Obstructive uropathy Intractable pain/colic unresponsive to oral therapy Status post 01/06 right ureteroscopy, laser lithotripsy, double-J stent placement, cystoscopy and fluoroscopy DISCHARGE MEDICATIONS: See Medication Reconciliation list. DISCHARGE INSTRUCTIONS: Patient was discharged home. Follow-up with urologist as outpatient. I have been assigned to dictate discharge summary for this account. I was not involved in the patient's management. Margarette Espino NP Jan 09, 2020 08:49
== END 2020-01-07 20:03 | disposition home or self-care (01) | DRG 465 ==
LOC: EMR 13:51 → 4E 14:06 → EDBEDREQ 14:53
PROC: 0T768DZ Dilation of Right Ureter with Intraluminal Device, Via Natural or Artificial Opening Endoscopic (ICD-10-PCS; 2020-01-07)
PROC: 0TF68ZZ Fragmentation in Right Ureter, Via Natural or Artificial Opening Endoscopic (ICD-10-PCS; principal; 2020-01-07 07:00)
DX: N13.2 Hydronephrosis with renal and ureteral calculous obstruction (principal); R31.9 Hematuria, unspecified
CPT/HCPCS: 36415; 74018; 74176; 76000; 80053; 80061; 81003; 82248; 83690; 84550; 85007; 85025; 85610; 85730; 94003; 94150; 96360; 96361; 96374; 96375; 99285; J2250; J2405; J2765; J7030; U0002